=== PATIENT | male | born 1995 | race Caucasian/White ===

== ENCOUNTER 2016-12-25 11:15 | Emergency (ER) | payer OTHER ==
[~2016-12-25] VITALS: Ht 172.7 cm; Wt 105.4 kg
[2016-12-25 13:07] LABS: BASOPHIL % 0.4 % (0-2); PLATELET COUNT 217 x10^3mcL (130-400)
[2016-12-25 13:34] LABS: ALBUMIN 4.1 g/dL (3.4-5.0); ALKALINE PHOSPHATASE 60 U/L (46-116); ALT/SGPT 31 U/L (16-63); AST/SGOT 20 U/L (15-37); BILIRUBIN TOTAL 1.13 mg/dL (0.20-1.00); CALCIUM 9.1 mg/dL (8.5-10.1); CREATININE SERUM 0.9 mg/dL (0.7-1.3); GFR1 > 60 mL/min; GLUCOSE SERUM 91 mg/dL (74-106); TOTAL PROTEIN, SERUM 7.3 g/dL (6.4-8.2)
[2016-12-25 13:36] LABS: AMPHETAMINE QUAL UR NONE DETECTED (NEG <=1000)
[2016-12-25 13:53] LABS: CARBON DIOXIDE 31.5 mmol/L (21-32); CHLORIDE SERUM 101 mmol/L (98-107); POTASSIUM SERUM 4.4 mmol/L (3.5-5.1)
[2016-12-25 14:43] VITALS: BP 135/80
== END 2016-12-25 14:43 | disposition home or self-care (01) ==
LOC: ED 11:15
PROVIDERS: Emergency Medicine
DX: R07.89 Other chest pain (principal)
CPT/HCPCS: 36415

== ENCOUNTER 2017-03-06 09:10 | Emergency (ER) | payer OTHER ==
[~2017-03-06] VITALS: Ht 175.3 cm; Wt 104.3 kg
[2017-03-06 09:56] LABS: BASOPHIL % 0.2 % (0-2); PLATELET COUNT 208 x10^3mcL (130-400); RED CELL DISTRIBUTION WIDTH 13.3 % (11.5-14.5)
[2017-03-06 10:19] LABS: CALCIUM 9.1 mg/dL (8.5-10.1); CARBON DIOXIDE 28.8 mmol/L (21-32); CHLORIDE SERUM 103 mmol/L (98-107); CREATININE SERUM 0.9 mg/dL (0.7-1.3); GFR1 > 60 mL/min; GLUCOSE SERUM 91 mg/dL (74-106); POTASSIUM SERUM 4.1 mmol/L (3.5-5.1); SODIUM SERUM 137 mmol/L (136-145)
[2017-03-06 10:23] LABS: ALBUMIN 4.1 g/dL (3.4-5.0); ALKALINE PHOSPHATASE 70 U/L (46-116); ALT/SGPT 35 U/L (16-63); AST/SGOT 18 U/L (15-37); BILIRUBIN TOTAL 1.1 mg/dL (0.20-1.00); LIPASE 90 IU/L (73-393); TOTAL PROTEIN, SERUM 7.8 g/dL (6.4-8.2)
[2017-03-06 10:41] VITALS: BP 126/82
== END 2017-03-06 10:41 | disposition home or self-care (01) ==
LOC: ED 09:10
PROVIDERS: Emergency Medicine
DX: R10.11 Right upper quadrant pain (principal); R19.7 Diarrhea, unspecified; R11.0 Nausea
CPT/HCPCS: 36415; J1885; Q0162

== ENCOUNTER 2019-03-27 10:57 | Emergency (ER) | payer OTHER ==
[~2019-03-27] VITALS: Ht 175.3 cm; Wt 106.6 kg
[2019-03-27 11:32] VITALS: BP 122/76
== END 2019-03-27 11:32 | disposition home or self-care (01) ==
LOC: ED 10:57
DX: R25.3 Fasciculation (principal); R21 Rash and other nonspecific skin eruption; Z98.890 Other specified postprocedural states

== ENCOUNTER 2019-11-26 19:55 | Emergency (ER) | payer OTHER ==
[~2019-11-26] VITALS: Ht 172.7 cm; Wt 107.0 kg
[2019-11-26 19:59] VITALS: Ht 172.7 cm; Wt 107.0 kg
[2019-11-26 21:21] VITALS: BP 138/97
== END 2019-11-26 21:21 | disposition home or self-care (01) ==
LOC: ED 19:55
DX: K59.00 Constipation, unspecified (principal); K62.89 Other specified diseases of anus and rectum